=== PATIENT | female | born 1955 | race Caucasian/White ===

== ENCOUNTER 2017-08-04 17:28 | Observation (INO) | payer OTHER ==
[2017-08-04] MEDS ORDERED: NS 0.9% 1000 ML* 1,000 ML IV ONE ×2 (18:45→20:56)
[2017-08-04] MEDS ORDERED: Ondansetron INJ* 2 MG/ML VIAL IV ONE (18:45)
[2017-08-04] MEDS ORDERED: HYDROmorphone INJ* 1 MG/ML CARPUJECT SYRINGE IV ONE (18:45)
[2017-08-04 19:25] LABS: ABS Basophils 0 10^3/ul (0-0.2); ABS Eosinophils 0 10^3/ul (0-0.6); ABS Lymphocytes 0.6 10^3/ul (1.0-4.8); ABS Monocytes 1.1 10^3/ul (0-0.8); ABS Neutrophils 1.8 10^3/ul (1.5-7.7); ABS Nucleated RBC 0 10^3/ul; Eosinophil % 1.1 % (0-6); Hematocrit 32 % (35-47); Lymphocyte % 17.8 % (25-47); Mean Corpuscular HGB Conc 34 g/dl (31-36); Mean Corpuscular Hemoglobin 31 pg (27-31); Mean Corpuscular Volume 91 fL (80-97); Mean Platelet Volume 8 um3 (7.4-10.4); Nucleated Red Blood Cells % 0.1; Platelet Count 155 10^3/ul (150-450); Red Blood Count 3.51 10^6/ul (4.0-5.4); Red Cell Distribution Width 16 % (10.5-15); White Blood Count 3.5 10^3/ul (3.5-10.8)
[2017-08-04] MEDS ORDERED: Metoclopramide IV* 5 MG/ML 2 ML VIAL IV ONE (19:46)
[2017-08-04] MEDS ORDERED: Dexamethasone IV* 8 MG in NS 0.9% 50 ML* 50 ML IVPB ONE (19:56)
[2017-08-04 20:25] LABS: Urine Appearance Clear; Urine Blood Negative (Negative); Urine Color Yellow; Urine Ketones 1+ (Negative); Urine Protein 1+(30 mg/dL) (Negative); Urine Urobilinogen Negative (Negative)
[2017-08-04] MEDS ORDERED: Dexamethasone IV* 4 MG/ML 1 ML (4 MG) IV SLOW PU ONE (20:30)
[2017-08-04] MEDS ORDERED: Ondansetron ODT TAB* 4 MG PO ONE (20:56)
--- NOTE | 2017-08-04 22:04 | ED ---
Francisco Samson Julia, scribed for Daniel Willis MD on 08/04/17 at 1858 . Abdominal Pain/Female - HPI Summary HPI Summary: This patient is a 62 year old F presenting to [facility] with a chief complaint of epigastric abdominal pain since 08/01/17. The patient rates the pain 3/10 in severity. Patient reports vomiting described as green and yellow since 10:00 this morning. Patient has a history of stage 4 lung cancer with METS to the lungs and liver. She states she just started on Tramadol last night. She had two doses prior to her CT scan today, and had a third dose afterwards. She reports the vomiting began after the CT scan. She reports chronic hyponatremia as a side effect from her medication. - History of Current Complaint Chief Complaint: EDAbdPain Stated Complaint: VOMITING/DIZZY Time Seen by Provider: 08/04/17 18:16 Hx Obtained From: Patient Onset/Duration: Lasting Hours Timing: Constant Pain Intensity: 3 Pain Scale Used: 0-10 Numeric Location: Epigastric Associated Signs and Symptoms: Positive: Vomiting Allergies/Adverse Reactions: Allergies Allergy/AdvReac Type Severity Reaction Status Date / Time Ciprofloxacin [From Cipro] Allergy Mild Rash Verified 08/04/17 10:18 Home Medications: Home Medications Cholecalciferol TAB* [Vitamin D TAB*] 2,000 units PO DAILY 08/04/17 [History Confirmed 08/04/17] Multivitamins/Minerals TAB* [Theragran/minerals TAB*] 1 tab PO DAILY 08/04/17 [ History Confirmed 08/04/17] [place]-3 Fatty Acids (Nf) [Fish Oil (NF)] 1,000 mg PO BID 08/04/17 [History Confirmed 08/04/17] Osimertinib Mesylate [Tagrisso] 80 mg PO BEDTIME 08/04/17 [History Confirmed ] PMH/Surg Hx/FS Hx/Imm Hx Endocrine/Hematology History: Denies: Hx Diabetes Cardiovascular History: Denies: Hx Hypertension, Hx Pacemaker/ICD Respiratory History: Denies: Hx Asthma History: Denies: Hx Renal Disease Musculoskeletal History: Denies: Hx Osteoporosis Sensory History: Denies: Hx Hearing Aid Psychiatric History: Denies: Hx Panic Disorder - Cancer History Cancer Type, Location and Year: PREHYPERPASIC LESION IN UTERUS, TREATED. LIVER. LUNG Hx Chemotherapy: Yes Hx Radiation Therapy: Yes - BILATERAL HIPS - Surgical History Surgery Procedure, Year, and Place: RIGHT ANKLE X 4 ( HARDWARD REMOVED). 2 C- SECTIONS. Rt LEG - VARICOSE VEINS REMOVED 2012. LAPAROSCOPY 1986. ARTERIAL MAPPING FOR LIVER Infectious Disease History: No Infectious Disease History: Denies: Traveled Outside the [place] in Last 30 Days - Family History Known Family History: Positive: Renal Disease, Other - CVA and Lung CA - Social History Alcohol Use: None Substance Use Type: Reports: None Smoking Status (MU): Never Smoked Tobacco Review of Systems Positive: Other - chronic hyponatremia Positive: Abdominal Pain, Vomiting All Other Systems Reviewed And Are Negative: Yes Physical Exam - Summary Physical Exam Summary: Appearance: The patient is well-nourished in no acute distress and in no acute pain. Skin: The skin is warm and dry and skin color reflects adequate perfusion. HEENT: The head is normocephalic and atraumatic. The pupils are equal and reactive. Scleral anicteric is present. The conjunctivae are clear and without drainage. Nares are patent and without drainage. Mouth reveals moist mucous membranes and the throat is without erythema and exudate. The external ears are intact. The ear canals are patent and without drainage. The tympanic membranes are intact. Neck: the neck is supple with full range of motion and non-tender. There are no carotid bruits. There is no neck vein distension. Respiratory: Chest is non-tender. Lungs are clear to auscultation and breath sounds are symmetrical and equal. Cardiovascular: Heart is regular rate and rhythm. There is no murmur or rub auscultated. There is no peripheral edema and pulses are symmetrical and equal. Abdomen: The abdomen is soft with epigastric tenderness with no rebound. There are normal bowel sounds heard in all four quadrants and there is no organomegaly palpated. Musculoskeletal: There is no back tenderness noted. Extremities are non-tender with full range of motion. There is good capillary refill. There is no peripheral edema or calf tenderness elicited. Neurological: Patient is alert and oriented to person, place and time. The patient has symmetrical motor strength in all four extremities. Cranial nerves are grossly intact. Deep tendon reflexes are symmetrical and equal in all four extremities. Psychiatric: The patient has an appropriate affect and does not exhibit any anxiety or depression. Triage Information Reviewed: Yes Vital Signs On Initial Exam: Initial Vitals Temp Pulse Resp BP Pulse Ox 99.4 F 76 16 120/68 97 08/04/17 17:32 08/04/17 17:32 08/04/17 17:32 08/04/17 17:32 08/04/17 17:32 Vital Signs Reviewed: Yes Diagnostics - Vital Signs Vital Signs Temp Pulse Resp BP Pulse Ox 08/04/17 18:08 99 F 68 18 129/77 97 08/04/17 17:32 99.4 F 76 16 120/68 97 - Laboratory Lab Results: Lab Results 08/04/17 08/04/17 08/04/17 Range/Units 18:55 18:55 18:55 WBC 3.5 (3.5-10.8) 10^3/ul RBC 3.51 L (4.0-5.4) 10^6/ul Hgb 11.0 L (12.0-16.0) g/dl Hct 32 L (35-47) % MCV 91 (80-97) fL MCH 31 (27-31) pg MCHC 34 (31-36) g/dl RDW 16 H (10.5-15) % Plt Count 155 (150-450) 10^3/ul MPV 8 (7.4-10.4) um3 Neut % (Auto) 49.8 (38-83) % Lymph % (Auto) 17.8 L (25-47) % Mill[place] % (Auto) 30.5 H (0-7) % Eos % (Auto) 1.1 (0-6) % Baso % (Auto) 0.8 (0-2) % Absolute Neuts (auto) 1.8 (1.5-7.7) 10^3/ul Absolute Lymphs (auto) 0.6 L (1.0-4.8) 10^3/ul Absolute Monos (auto) 1.1 H (0-0.8) 10^3/ul Absolute Eos (auto) 0 (0-0.6) 10^3/ul Absolute Basos (auto) 0 (0-0.2) 10^3/ul Absolute Nucleated RBC 0 10^3/ul Nucleated RBC % 0.1 Sodium 121 L D (133-145) mmol/L Potassium 4.0 (3.5-5.0) mmol/L Chloride 89 L (101-111) mmol/L Carbon Dioxide 25 (22-32) mmol/L Anion Gap 7 (2-11) mmol/L BUN 14 (6-24) mg/dL Creatinine 0.60 (0.51-0.95) mg/dL Est GFR ( Amer) 131.1 (>60) Est GFR (Non-Af Amer) 102.0 (>60) BUN/Creatinine Ratio 23.3 H (8-20) Glucose 106 H (70-100) mg/dL Lactic Acid 0.9 (0.5-2.0) mmol/L Calcium 8.0 L (8.6-10.3) mg/dL Total Bilirubin 0.60 (0.2-1.0) mg/dL AST 47 H (13-39) U/L ALT 24 (7-52) U/L Alkaline Phosphatase 115 H (34-104) U/L Troponin I 0.01 (<0.04) ng/mL C-Reactive Protein 44.27 H (< 5.00) mg/L Total Protein 6.4 (6.4-8.9) g/dL Albumin 3.7 (3.2-5.2) g/dL Globulin 2.7 (2-4) g/dL Albumin/Globulin Ratio 1.4 (1-3) Lipase 15 (11.0-82.0) U/L Urine Color Urine Appearance Urine pH (5-9) Ur Specific [place] (1.010-1.030) Urine Protein (Negative) Urine Ketones (Negative) Urine Blood (Negative) Urine Nitrate (Negative) Urine Bilirubin (Negative) Urine Urobilinogen (Negative) Ur Leukocyte Esterase (Negative) Urine WBC (Auto) (Absent) Urine RBC (Auto) (Absent) Urine Bacteria (Absent) Hyaline Casts (Absent) Urine Glucose (Negative) 08/04/18 Range/Units 20:05 WBC (3.5-10.8) 10^3/ul RBC (4.0-5.4) 10^6/ul Hgb (12.0-16.0) g/dl Hct (35-47) % MCV (80-97) fL MCH (27-31) pg MCHC (31-36) g/dl RDW (10.5-15) % Plt Count (150-450) 10^3/ul MPV (7.4-10.4) um3 Neut % (Auto) (38-83) % Lymph % (Auto) (25-47) % Mill[place] % (Auto) (0-7) % Eos % (Auto) (0-6) % Baso % (Auto) (0-2) % Absolute Neuts (auto) (1.5-7.7) 10^3/ul Absolute Lymphs (auto) (1.0-4.8) 10^3/ul Absolute Monos (auto) (0-0.8) 10^3/ul Absolute Eos (auto) (0-0.6) 10^3/ul Absolute Basos (auto) (0-0.2) 10^3/ul Absolute Nucleated RBC 10^3/ul Nucleated RBC % Sodium (133-145) mmol/L Potassium (3.5-5.0) mmol/L Chloride (101-111) mmol/L Carbon Dioxide (22-32) mmol/L Anion Gap (2-11) mmol/L BUN (6-24) mg/dL Creatinine (0.51-0.95) mg/dL Est GFR ( Amer) (>60) Est GFR (Non-Af Amer) (>60) BUN/Creatinine Ratio (8-20) Glucose (70-100) mg/dL Lactic Acid (0.5-2.0) mmol/L Calcium (8.6-10.3) mg/dL Total Bilirubin (0.2-1.0) mg/dL AST (13-39) U/L ALT (7-52) U/L Alkaline Phosphatase (34-104) U/L Troponin I (<0.04) ng/mL C-Reactive Protein (< 5.00) mg/L Total Protein (6.4-8.9) g/dL Albumin (3.2-5.2) g/dL Globulin (2-4) g/dL Albumin/Globulin Ratio (1-3) Lipase (11.0-82.0) U/L Urine Color Yellow Urine Appearance Clear Urine pH 6.0 (5-9) Ur Specific [place] 1.040 H (1.010-1.030) Urine Protein 1+(30 mg/dl) A (Negative) Urine Ketones 1+ A (Negative) Urine Blood Negative (Negative) Urine Nitrate Negative (Negative) Urine Bilirubin Negative (Negative) Urine Urobilinogen Negative (Negative) Ur Leukocyte Esterase Negative (Negative) Urine WBC (Auto) Trace(0-5/hpf) (Absent) Urine RBC (Auto) Trace(0-2/hpf) (Absent) Urine Bacteria Absent (Absent) Hyaline Casts Present A (Absent) Urine Glucose Negative (Negative) Result Diagrams: 08/04/17 18:55 08/04/17 18:55 Lab Statement: Any lab studies that have been ordered have been reviewed, and results considered in the medical decision making process. Abdominal Pain Fem Course/Dx - Course Course Of Treatment: Ms. Peace presented with several days of RUQ/epigastric pain. She had a CT scan today that was ordered by Dr. Love. She has lung CA with liver mets which the DT shows have progressed. She is hyponatremic here today and I spoke with Dr. Bravo who recommended symptomatic treatment and IV NS and D/C if she improved or admission if not. She has not improved much here with treatement and I have asked the hsopitalist service to see her. - Diagnoses Provider Diagnoses: Hyponatremia, Intractable vomiting with nausea - Provider Notifications Discussed Care Of Patient With: Amilcar Bravo - oncology Time Discussed With Above Provider: 20:00 Instructed by Provider To: Other - He recomends treating symptoms and if they have not improved while in ED admit, otherwise the patient can go home and he will see them tomorrow. Discharge - Discharge Plan Condition: Stable Disposition: ADMITTED TO [facility] Referrals: Maite Horton MD [Primary Care Provider] - The documentation as recorded by the Francisco marino Julia accurately reflects the service I personally performed and the decisions made by me, Daniel Willis MD.
--- NOTE | 2017-08-04 23:09 | HP ---
H&P (Free Text) History and Physical: PCP: Lizzy Horton MD Date/Time: 08/04/2017 2310 CC: abdominal pain HPI: Mrs Peace is a 62YO female HX non-small cell lung CA stage 4 w/ metastases to liver who reports onset of upper abdominal pain on Tuesday for which she was seen at her oncologist's office Tuesday where it was felt her liver was inflamed and a CT abd/pel W was arranged for Tue. This revealed progression of pulmonary, hepatic, bony, & lymphatic metastatic disease. After having the CT done Tuesday AM, she began vomiting thin yellow-green fluid. She denies F/C, sweats, diarrhea, bloody/black content of emesis, chest pain, SOB, or other issues. ED discussed case with oncology who advised observation. PMedHx non-small cell lung CA stage 4 w/ metastases to liver Ambulatory Orders Cholecalciferol TAB* [Vitamin D TAB*] 2,000 units PO DAILY 08/04/17 Multivitamins/Minerals TAB* [Theragran/minerals TAB*] 1 tab PO DAILY 08/04/17 [place]-3 Fatty Acids (Nf) [Fish Oil (NF)] 1,000 mg PO BID 08/04/17 Osimertinib Mesylate [Tagrisso] 80 mg PO BEDTIME 08/04/17 Allergies ciprofloxacin [From Cipro] Allergy (Mild, Verified 08/05/17 00:59) Rash PSurgHx section x2 R tib-fib repair tonsillectomy SocHx: life-long non-smoker, no alcohol or recreational drugs; , lives alone; full code status FamHx: Mother: passed at 73 2nd colon CA w/ alcoholism; Father: passed at 62 2nd complications of alcoholism & PCKD; Brother: alive at 55 w/ PCKD; Sister: alive at 57 w/ melanoma ROS: as above, otherwise reviewed and all were negative vitals: Vital Signs Temp 36.7 C 08/05/17 01:15 Pulse 65 08/05/17 01:15 Resp 16 08/05/17 01:31 BP 126/70 08/05/17 01:15 Pulse Ox 100 08/05/17 01:15 Constitutional: NAD, normally developed, well-nourished white female HEENM: atraumatic; sclera/conjunctiva: anicteric/clear; hearing: clinically intact; oropharynx: clear, mucosa tacky Neck: soft tissue: non-tender; thyroid: normal Pulmonary: clear to auscultation bilaterally, good aeration, no accessory muscle use CV: RR/RR, normal S1S2, no carotid bruit, no jugular venous distention, 2+ B DP/ PT, no edema Abdominal: soft, non-distended, non-tender, no rebound/guarding/rigidity, normoactive bowel sounds, liver mildly tender & palpable ~2cm below R costal margin, no costovertebral angle tenderness Musculoskeletal: general: grossly intact, no tenderness w/ palpation; gait: stable Integumental: normal appearance and texture of exposed skin Psychiatric orientation: AA&O to PPS affect: calm mood: cooperative eye contact: good content: reliable responses: timely insight: good Testing: Lab Results 08/04/17 08/04/17 08/04/17 Range/Units 18:55 18:55 18:55 WBC 3.5 (3.5-10.8) 10^3/ul RBC 3.51 L (4.0-5.4) 10^6/ul Hgb 11.0 L (12.0-16.0) g/dl Hct 32 L (35-47) % MCV 91 (80-97) fL MCH 31 (27-31) pg MCHC 34 (31-36) g/dl RDW 16 H (10.5-15) % Plt Count 155 (150-450) 10^3/ul MPV 8 (7.4-10.4) um3 Neut % (Auto) 49.8 (38-83) % Lymph % (Auto) 17.8 L (25-47) % [place] % (Auto) 30.5 H (0-7) % Eos % (Auto) 1.1 (0-6) % Baso % (Auto) 0.8 (0-2) % Absolute Neuts (auto) 1.8 (1.5-7.7) 10^3/ul Absolute Lymphs (auto) 0.6 L (1.0-4.8) 10^3/ul Absolute Monos (auto) 1.1 H (0-0.8) 10^3/ul Absolute Eos (auto) 0 (0-0.6) 10^3/ul Absolute Basos (auto) 0 (0-0.2) 10^3/ul Absolute Nucleated RBC 0 10^3/ul Nucleated RBC % 0.1 INR (Anticoag Therapy) (0.77-1.02) APTT (26.0-36.3) seconds Sodium 121 L D (133-145) mmol/L Potassium 4.0 (3.5-5.0) mmol/L Chloride 89 L (101-111) mmol/L Carbon Dioxide 25 (22-32) mmol/L Anion Gap 7 (2-11) mmol/L BUN 14 (6-24) mg/dL Creatinine 0.60 (0.51-0.95) mg/dL Est GFR ( Amer) 131.1 (>60) Est GFR (Non-Af Amer) 102.0 (>60) BUN/Creatinine Ratio 23.3 H (8-20) Glucose 106 H (70-100) mg/dL Lactic Acid 0.9 (0.5-2.0) mmol/L Calcium 8.0 L (8.6-10.3) mg/dL Total Bilirubin 0.60 (0.2-1.0) mg/dL AST 47 H (13-39) U/L ALT 24 (7-52) U/L Alkaline Phosphatase 115 H (34-104) U/L Troponin I 0.01 (<0.04) ng/mL C-Reactive Protein 44.27 H (< 5.00) mg/L Total Protein 6.4 (6.4-8.9) g/dL Albumin 3.7 (3.2-5.2) g/dL Globulin 2.7 (2-4) g/dL Albumin/Globulin Ratio 1.4 (1-3) Lipase 15 (11.0-82.0) U/L Urine Color Urine Appearance Urine pH (5-9) Ur Specific [place] (1.010-1.030) Urine Protein (Negative) Urine Ketones (Negative) Urine Blood (Negative) Urine Nitrate (Negative) Urine Bilirubin (Negative) Urine Urobilinogen (Negative) Ur Leukocyte Esterase (Negative) Urine WBC (Auto) (Absent) Urine RBC (Auto) (Absent) Urine Bacteria (Absent) Hyaline Casts (Absent) Urine Glucose (Negative) 08/04/17 08/05/17 08/05/17 Range/Units 20:05 02:21 02:21 WBC (3.5-10.8) 10^3/ul RBC (4.0-5.4) 10^6/ul Hgb (12.0-16.0) g/dl Hct (35-47) % MCV (80-97) fL MCH (27-31) pg MCHC (31-36) g/dl RDW (10.5-15) % Plt Count (150-450) 10^3/ul MPV (7.4-10.4) um3 Neut % (Auto) (38-83) % Lymph % (Auto) (25-47) % [place] % (Auto) (0-7) % Eos % (Auto) (0-6) % Baso % (Auto) (0-2) % Absolute Neuts (auto) (1.5-7.7) 10^3/ul Absolute Lymphs (auto) (1.0-4.8) 10^3/ul Absolute Monos (auto) (0-0.8) 10^3/ul Absolute Eos (auto) (0-0.6) 10^3/ul Absolute Basos (auto) (0-0.2) 10^3/ul Absolute Nucleated RBC 10^3/ul Nucleated RBC % INR (Anticoag Therapy) 1.01 (0.77-1.02) APTT 33.5 (26.0-36.3) seconds Sodium (133-145) mmol/L Potassium (3.5-5.0) mmol/L Chloride (101-111) mmol/L Carbon Dioxide (22-32) mmol/L Anion Gap (2-11) mmol/L BUN 11 (6-24) mg/dL Creatinine 0.47 L (0.51-0.95) mg/dL Est GFR ( Amer) 173.8 (>60) Est GFR (Non-Af Amer) 135.2 (>60) BUN/Creatinine Ratio (8-20) Glucose (70-100) mg/dL Lactic Acid (0.5-2.0) mmol/L Calcium (8.6-10.3) mg/dL Total Bilirubin (0.2-1.0) mg/dL AST (13-39) U/L ALT (7-52) U/L Alkaline Phosphatase (34-104) U/L Troponin I (<0.04) ng/mL C-Reactive Protein (< 5.00) mg/L Total Protein (6.4-8.9) g/dL Albumin (3.2-5.2) g/dL Globulin (2-4) g/dL Albumin/Globulin Ratio (1-3) Lipase (11.0-82.0) U/L Urine Color Yellow Urine Appearance Clear Urine pH 6.0 (5-9) Ur Specific [place] 1.040 H (1.010-1.030) Urine Protein 1+(30 mg/dl) A (Negative) Urine Ketones 1+ A (Negative) Urine Blood Negative (Negative) Urine Nitrate Negative (Negative) Urine Bilirubin Negative (Negative) Urine Urobilinogen Negative (Negative) Ur Leukocyte Esterase Negative (Negative) Urine WBC (Auto) Trace(0-5/hpf) (Absent) Urine RBC (Auto) Trace(0-2/hpf) (Absent) Urine Bacteria Absent (Absent) Hyaline Casts Present A (Absent) Urine Glucose Negative (Negative) 08/05/17 Range/Units 02:21 WBC 3.6 (3.5-10.8) 10^3/ul RBC 3.14 L (4.0-5.4) 10^6/ul Hgb 9.9 L (12.0-16.0) g/dl Hct 29 L (35-47) % MCV 93 (80-97) fL MCH 32 H (27-31) pg MCHC 34 (31-36) g/dl RDW 16 H (10.5-15) % Plt Count 120 L (150-450) 10^3/ul MPV 8 (7.4-10.4) um3 Neut % (Auto) 43.5 (38-83) % Lymph % (Auto) 24.0 L (25-47) % [place] % (Auto) 30.2 H (0-7) % Eos % (Auto) 1.5 (0-6) % Baso % (Auto) 0.8 (0-2) % Absolute Neuts (auto) 1.5 (1.5-7.7) 10^3/ul Absolute Lymphs (auto) 0.9 L (1.0-4.8) 10^3/ul Absolute Monos (auto) 1.1 H (0-0.8) 10^3/ul Absolute Eos (auto) 0.1 (0-0.6) 10^3/ul Absolute Basos (auto) 0 (0-0.2) 10^3/ul Absolute Nucleated RBC 0 10^3/ul Nucleated RBC % 0.5 INR (Anticoag Therapy) (0.77-1.02) APTT (26.0-36.3) seconds Sodium (133-145) mmol/L Potassium (3.5-5.0) mmol/L Chloride (101-111) mmol/L Carbon Dioxide (22-32) mmol/L Anion Gap (2-11) mmol/L BUN (6-24) mg/dL Creatinine (0.51-0.95) mg/dL Est GFR ( Amer) (>60) Est GFR (Non-Af Amer) (>60) BUN/Creatinine Ratio (8-20) Glucose (70-100) mg/dL Lactic Acid (0.5-2.0) mmol/L Calcium (8.6-10.3) mg/dL Total Bilirubin (0.2-1.0) mg/dL AST (13-39) U/L ALT (7-52) U/L Alkaline Phosphatase (34-104) U/L Troponin I (<0.04) ng/mL C-Reactive Protein (< 5.00) mg/L Total Protein (6.4-8.9) g/dL Albumin (3.2-5.2) g/dL Globulin (2-4) g/dL Albumin/Globulin Ratio (1-3) Lipase (11.0-82.0) U/L Urine Color Urine Appearance Urine pH (5-9) Ur Specific [place] (1.010-1.030) Urine Protein (Negative) Urine Ketones (Negative) Urine Blood (Negative) Urine Nitrate (Negative) Urine Bilirubin (Negative) Urine Urobilinogen (Negative) Ur Leukocyte Esterase (Negative) Urine WBC (Auto) (Absent) Urine RBC (Auto) (Absent) Urine Bacteria (Absent) Hyaline Casts (Absent) Urine Glucose (Negative) Impression: 62F HX non-small cell lung CA metastatic to liver presents with intractable N/V after starting tramadol PO DIAGNOSIS & PLAN Primary intractable N/V : ? related to tramadol, will hold : pain control : anti-emetics : IVFs : supportive care hypoNatremia, suspect 2nd volume depletion : IVFs, trend non-small cell lung CA metastatic to liver : management per oncology Admission Rational: observation for intractable N/V DVTp: SCDs & heparin SQ Code Status: full
[2017-08-04] MEDS ORDERED: NS 0.9% 1000 ML* 1,000 ML IV SCH (23:45)
[2017-08-04] MEDS ORDERED: Metoclopramide IV* 5 MG/ML 2 ML VIAL IV PRN (23:47)
[2017-08-04] MEDS ORDERED: Acetaminophen TAB* 325 MG PO PRN (23:47)
[2017-08-04] MEDS ORDERED: oxyCODONE TAB* 5 MG TAB PO PRN (23:47)
[2017-08-04] MEDS ORDERED: PROCHLORPERAZINE INJ 5 MG/ML 2 ML VIAL IV PRN (23:47)
[2017-08-04] MEDS ORDERED: Ondansetron INJ* 2 MG/ML VIAL IV PRN (23:47)
[2017-08-04] MEDS ORDERED: LORazepam INJ* 2 MG/ML 1 ML VIAL IV PRN (23:47)
[2017-08-05] MEDS: HYDROmorphone INJ* 2 MG/ML CARPUJECT SYRINGE IV PRN ×2 (01:31→05:32)
[2017-08-05 02:37] LABS: INR 1.01 (0.77-1.02)
[2017-08-05 02:38] LABS: White Blood Count 3.6 10^3/ul (3.5-10.8)
[2017-08-05 02:39] LABS: ABS Basophils 0 10^3/ul (0-0.2); ABS Eosinophils 0.1 10^3/ul (0-0.6); ABS Lymphocytes 0.9 10^3/ul (1.0-4.8); ABS Monocytes 1.1 10^3/ul (0-0.8); ABS Neutrophils 1.5 10^3/ul (1.5-7.7); ABS Nucleated RBC 0 10^3/ul; Eosinophil % 1.5 % (0-6); Hematocrit 29 % (35-47); Hemoglobin 9.9 g/dl (12.0-16.0); Mean Corpuscular HGB Conc 34 g/dl (31-36); Mean Corpuscular Hemoglobin 32 pg (27-31); Mean Corpuscular Volume 93 fL (80-97); Mean Platelet Volume 8 um3 (7.4-10.4); Nucleated Red Blood Cells % 0.5; Platelet Count 120 10^3/ul (150-450); Red Blood Count 3.14 10^6/ul (4.0-5.4); Red Cell Distribution Width 16 % (10.5-15)
[2017-08-05 02:46] LABS: EGFR Non-African American 135.2 (>60)
[2017-08-05] MEDS ORDERED: Heparin VIAL(*) 5000 UNITS/ML VIAL (FIVE THOUSAND) SUBCUT SCH (06:00)
[2017-08-05] MEDS ORDERED: Omeprazole CAP* 20 MG PO SCH (06:00)
[2017-08-05 08:16] VITALS: BP 105/63
[2017-08-05] MEDS ORDERED: Docusate CAP* 100 MG PO SCH (09:00)
[2017-08-05] MEDS ORDERED: ALPRAZolam TAB* 0.5 MG PO ONE (09:26)
[2017-08-05] MEDS ORDERED: OSIMERTINIB MESYLATE 80 MG PO SCH (21:00)
--- NOTE | 2017-08-06 06:54 | DS ---
CC: Dr. Arroyo, [facility]; Dr. Angeli Love * DISCHARGE SUMMARY: DATE OF ADMISSION: 08/04/17 DATE OF DISCHARGE: 08/05/17 PRIMARY CARE PROVIDER: Dr. Maite Horton. PRIMARY ONCOLOGIST: Dr. Angeli Love. ONCOLOGIST: At [facility], Dr. Arroyo. ATTENDING PHYSICIAN: Dr. Amilcar Bravo.* (DICTATED BY DAMIÁN CHAHAL) DISCHARGING PROVIDER: DAMIÁN Chahal PRIMARY DISCHARGE DIAGNOSES: 1. Intractable pain with nausea and vomiting. 2. Metastatic non-small cell lung carcinoma with evidence of significant progression of disease. 3. Hyponatremia secondary to hypovolemia. DISCHARGE MEDICATIONS: 1. Cholecalciferol 2000 units p.o. daily. 2. Multivitamin 1 tablet p.o. daily. 3. [place]-3 fatty acids 1000 mg p.o. twice daily. 4. Zofran 4 mg p.o. q.4 hours as needed for nausea and vomiting. 5. Tagrisso 80 mg p.o. at bedtime. 6. Oxycodone 5 mg p.o. q.4 hours as needed for pain. Medication changes: 1. Start ODT Zofran. 2. Start oxycodone. HOSPITAL IMAGING: None. HOSPITAL COURSE: This is a 62-year-old female with metastatic non-small cell lung carcinoma that is received care with Dr. Love in coordination with [facility] and Dr. Arroyo. The patient was seen in the oncology office earlier this week with complaints of abdominal pain and some mild nausea with some focal swelling. The patient was noted to have tender hepatomegaly on exam with concern for progression of disease. The patient underwent CT scan of the abdomen and pelvis on 08/04/17 and had complaints of increased pain and was prescribed tramadol at that time. Shortly after taking the tramadol and completing her scan, she developed severe nausea and vomiting and increased pain. She was unable to tolerate anything orally and proceeded to the emergency department for evaluation. At the time of admission, vitals were unremarkable. The patient was afebrile. Labs demonstrated mild normocytic anemia with a hemoglobin of 11, but she was noted to be hyponatremic with a sodium of 121, presumably secondary to hypovolemia. Her transaminases were only mildly elevated, normal total bilirubin, no evidence of biliary obstruction. Urinalysis was also unremarkable. The patient was subsequently admitted to a period of observation for control of her pain, nausea, and vomiting. The patient received IV hydration with normal saline. At the time of discharge, he is able to tolerate clear liquids. Her pain is controlled with oral analgesics and has not required an antiemetic in almost 12 [address] The patient's CT from yesterday showed significant progression of her disease including her known pulmonary masses and liver metastases as well as lymphadenopathy, which is likely responsible for her complaints of abdominal pain and bloating. DISPOSITION AND FOLLOWUP PLAN: The patient is being discharged to home. Her CT scan from yesterday has been forwarded to [facility] for review and the patient plans to contact Dr. Arroyo regarding treatment planning and we will follow up with Dr. Love here on Tuesday regarding further discussion of her treatment options. DAMIÁN CHAHAL [id number]/[facility] #: [id number]
== END 2017-08-05 11:00 | disposition home or self-care (01) ==
LOC: ED 17:28 → MED 23:10
PROVIDERS: ADMIT Hospitalist; ATTEND Internal Medicine Hematology & Oncology
DX: R10.9 Unspecified abdominal pain (principal); R11.2 Nausea with vomiting, unspecified; C34.90 Malignant neoplasm of unspecified part of unspecified bronchus or lung; C79.9 Secondary malignant neoplasm of unspecified site; E87.1 Hypo-osmolality and hyponatremia; E86.1 Hypovolemia; Z79.899 Other long term (current) drug therapy; Z88.1 Allergy status to other antibiotic agents
CPT/HCPCS: 36415; 80053; 81003; 81015; 82565; 83605; 83690; 84484; 84520; 85025; 85610; 85730; 86140; 87086; 96374; 96375; 96376; 99217; 99285; A9270-GY; G0378; J0780; J1100; J1170; J2765